=== PATIENT | female | born 1965 | race Caucasian/White ===

== ENCOUNTER 2016-12-06 20:17 | Emergency (ER) | payer OTHER, MEDICAID ==
[~2016-12-06] VITALS: Ht 167.6 cm; Wt 68.0 kg
[~2016-12-06 20:17] MED LIST: DEPA500T3; IBUP-238
[2016-12-06] MEDS ORDERED: LORazepam 2 MG/ML VIAL IM ONE (20:45)
[2016-12-06 21:09] VITALS: BP 132/71; PULSE 78; RESP 15; TEMP 98.7; O2SAT 95
[2016-12-06 21:15] LABS: AUTOMATED NEUTROPHIL # 7.3 TH/MM3 (1.8-7.7); BASOPHIL # 0.1 TH/MM3 (0-0.2); BASOPHIL % 0.5 % (0.0-2.0); EOSINOPHIL # 0.2 TH/MM3 (0-0.4); EOSINOPHIL % 1.9 % (0.0-4.0); HEMATOCRIT 44.6 % (35.0-46.0); HEMO FLAGS DIFF FINAL; LYMPH % 20.2 % (9.0-44.0); LYMPHOCYTE # 2.1 TH/MM3 (1.0-4.8); MEAN CELL VOLUME 82.6 FL (80.0-100.0); MEAN CORPUSCULAR HEMOGLOBIN 28.6 PG (27.0-34.0); MEAN CORPUSCULAR HGB CONC 34.6 % (32.0-36.0); MONO % 5.8 % (0.0-8.0); NEUT % 71.6 % (16.0-70.0); PLATELET COUNT 309 TH/MM3 (150-450); WHITE BLOOD COUNT 10.2 TH/MM3 (4.0-11.0)
[2016-12-06 21:35] LABS: ALKALINE PHOSPHATASE 179 U/L (45-117); TOTAL BILIRUBIN ADULT 0.5 MG/DL (0.2-1.0)
[2016-12-06 21:43] LABS: ALT (GPT) 70 U/L (10-53); ANION GAP 10 MEQ/L (5-15); AST (GOT) 79 U/L (15-37); BICARBONATE 24.3 MEQ/L (21.0-32.0); BLOOD UREA NITROGEN 3 MG/DL (7-18); CHLORIDE 106 MEQ/L (98-107); GLOMERULAR FILTRATION RATE 74 ML/MIN (>89); SODIUM (NA) 140 MEQ/L (136-145)
--- NOTE | 2016-12-06 21:46 | PD ---
HPI Chief Complaint: Psychiatric Symptoms Time Seen by Provider: 20:25 Travel History International Travel<30 days: No Contact w/Intl Traveler<30days: No Traveled to known affect area: No History of Present Illness HPI Patient is a 51-year-old female who is brought in by police under [place] act after she stated she wanted to kill her self. Per [place] act, patient reported to her girlfriend that she took a bunch of her pills. She reports that she only took 2 muscle relaxers because her neck was hurting. She says she is still sick because usually she takes morphine, but she hasn't had any. She is crying, but denies any other medical issues at this time. PFSH Past Medical History Bipolar Disorder: Yes Cardiovascular Problems: Yes (HTN) Diminished Hearing: No Respiratory: Yes Seizures: Yes ?: Not Past Surgical History Hysterectomy: Yes Social History Alcohol Use: No Tobacco Use: Yes (1 DAY) Substance Use: Yes Allergies-Medications (Allergen,Severity, Reaction): Coded Allergies: Aspirin (Verified Allergy, Mild, 07/07/06) Reported Meds & Prescriptions Reported Meds & Active Scripts Active Reported Motrin (Ibuprofen) 800 Mg Tab Depakote Er (Divalproex Sodium) 500 Mg Earl Review of Systems Except as stated in HPI: all other systems reviewed are Neg General / Constitutional: No: Fever, Chills HENT: No: Headaches, Lightheadedness Cardiovascular: No: Chest Pain or Discomfort Respiratory: No: Shortness of Breath Gastrointestinal: No: Nausea, Vomiting, Abdominal Pain Musculoskeletal: Positive: Pain Skin: No Rash, No Change in Pigmentation Neurologic: No: Weakness, Dizziness Physical Exam Narrative GENERAL: Awake and alert, in no acute distress, crying. SKIN: Focused skin assessment warm/dry. No signs of infection. Multiple bruises to her breasts. HEAD: Atraumatic. Normocephalic. EYES: Pupils equal and round. No scleral icterus. ENT: Mucous membranes pink and moist. NECK: Trachea midline. No JVD. CARDIOVASCULAR: Regular rate and rhythm. No murmur appreciated. RESPIRATORY: No accessory muscle use. Clear to auscultation. Breath sounds equal bilaterally. GASTROINTESTINAL: Abdomen soft, non-tender, nondistended. MUSCULOSKELETAL: No obvious deformities. No clubbing. No cyanosis. No edema. NEUROLOGICAL: Awake and alert. No obvious cranial nerve deficits. Motor grossly within normal limits. Normal speech. PSYCHIATRIC: Patient is tearful and very upset. She says she did not take any extra pills. Data Data Last Documented VS Vital Signs Date Time Temp Pulse Resp B/P Pulse Ox O2 Delivery O2 Flow Rate FiO2 12/06/16 21:14 15 15 12/06/16 21:09 98.7 132/71 95 Orders Complete Blood Count With Diff (12/06/16 20:38) Comprehensive Metabolic Panel (12/06/16 20:38) Psych Screen (12/06/16 20:38) Lorazepam Inj (Ativan Inj) (12/06/16 20:45) Drug Screen, Random Urine (12/06/16 20:38) Alcohol (Ethanol) (12/06/16 20:38) Salicylates (Aspirin) (12/06/16 20:38) Tylenol (Acetaminophen) (12/06/16 20:38) Electrocardiogram (12/06/16 ) Troponin I (12/06/16 20:39) Labs Laboratory Tests Test 12/06/16 20:55 White Blood Count 10.2 TH/MM3 Red Blood Count 5.40 MIL/MM3 Hemoglobin 15.4 GM/DL Hematocrit 44.6 % Mean Corpuscular Volume 82.6 FL Mean Corpuscular Hemoglobin 28.6 PG Mean Corpuscular Hemoglobin 34.6 % Concent Red Cell Distribution Width 12.0 % Platelet Count 309 TH/MM3 Mean Platelet Volume 7.3 FL Neutrophils (%) (Auto) 71.6 % Lymphocytes (%) (Auto) 20.2 % Monocytes (%) (Auto) 5.8 % Eosinophils (%) (Auto) 1.9 % Basophils (%) (Auto) 0.5 % Neutrophils # (Auto) 7.3 TH/MM3 Lymphocytes # (Auto) 2.1 TH/MM3 Monocytes # (Auto) 0.6 TH/MM3 Eosinophils # (Auto) 0.2 TH/MM3 Basophils # (Auto) 0.1 TH/MM3 CBC Comment DIFF FINAL Differential Comment Total Bilirubin 0.5 MG/DL Alkaline Phosphatase 179 U/L Total Protein 8.5 GM/DL Salicylates Level 4.0 MG/DL MDM Medical Decision Making Medical Screen Exam Complete: Yes Emergency Medical Condition: Yes Medical Record Reviewed: Yes Differential Diagnosis Suicidal ideation versus intoxication versus psychosis Narrative Course Patient is a 51-year-old female comes in under a [place] act after she threatened suicide. She has no medical complaints. Police brought her pill bottles with her that still have most of the medications in them. She is not exhibiting signs of overdose on anything. She is very anxious and tearful. Given 1 mg of Ativan to help her relax. Labs sent show no acute abnormalities. She will be medically cleared for psychiatric evaluation. Disposition per psychiatry. Diagnosis Primary Impression: Depression with suicidal ideation Condition: Cherrie Caballero MD Dec 06, 2016 21:46
[2016-12-06 21:57] LABS: ACETAMINOPHEN LESS THAN 2.0 MCG/ML (10.0-30.0); ALCOHOL LESS THAN 3 MG/DL (0-5)
[2016-12-06] MEDS ORDERED: BACL10TA PO (23:26)
[2016-12-06] MEDS ORDERED: AMLO5TAB2 PO (23:26)
[2016-12-06] MEDS ORDERED: TRAZ50TA12 PO (23:26)
[2016-12-06] MEDS ORDERED: LAMO25 PO (23:26)
[2016-12-06] MEDS ORDERED: ARIP1TAB13 PO (23:26)
[2016-12-07 01:00] VITALS: BP 135/82; PULSE 94; RESP 20; TEMP 98.4; O2SAT 97
[2016-12-07 06:05] VITALS: BP 118/73; PULSE 77; RESP 20; TEMP 97.7; O2SAT 96
[2016-12-07 10:04] VITALS: BP 104/59; PULSE 78; RESP 18; O2SAT 95
[2016-12-07 14:18] VITALS: BP 132/76; PULSE 82; RESP 17; O2SAT 96
[2016-12-07] MEDS ORDERED: lamoTRIgine 25 MG TAB PO ONE (15:00)
--- NOTE | 2016-12-07 15:33 | PD ---
History of Present Illness Chief Complaint: Psychiatric Symptoms Travel History International Travel<30 Days: No Contact w/Intl Traveler<30days: No Known affected area: No Legal Status Legal Status: D[place] Act [place] Act Signed By: David Garcia History of Present Illness: 51-year-old female who got into an argument with her new spouse and made threats to kill herself. At this time the patient is calm, pleasant and cooperative. She reiterates she did not overdose on pills but took to muscle relaxers. She also reports suffering from chronic pain and from bipolar disorder. She would like her bipolar medicines at this time. She denies any suicidal or homicidal ideation, plan or intent. She is cognitively intact and has no psychotic symptoms. She is verbally jermaine for safety. She feels her anger got the best of her and this is the reason she made threats to harm herself. Furthermore, at this time, this physician does not find any significant objective clinical evidence of bipolar disorder or a mood disorder. PFSH Past Medical History Bipolar Disorder: Yes Cardiovascular Problems: Yes (HTN) Diminished Hearing: No Respiratory: Yes Seizures: Yes ?: Not Past Surgical History Hysterectomy: Yes Psychiatric History Psychiatric History Hx Psychiatric Treatment: YES [facility]. This physician cannot discern significant clinical evidence of a mood disorder at this time as the patient is calm, pleasant and cooperative. History of Inpatient Treatment: Yes Guns or firearms in home: No Social History Hx Alcohol Use: No Hx Tobacco Use: Yes (1 PK DAY) Hx Substance Use: Yes Substance Use Type: Cocaine Hx of Substance Use Treatment: No Allergies-Medications (Allergen,Severity, Reaction): Coded Allergies: Aspirin (Verified Allergy, Mild, 07/07/06) Reported Meds & Prescriptions Reported Meds & Active Scripts Active Reported Lamictal (Lamotrigine) 25 Mg Tab 50 Mg PO BID Aripiprazole 15 Mg Tab 15 Mg PO DAILY Baclofen 10 Mg Tab 5 Mg PO BID PRN Trazodone (Trazodone HCl) 50 Mg Tab 50 Mg PO HS Amlodipine (Amlodipine Besylate) 5 Mg Tab 5 Mg PO DAILY Review of Systems Except as stated in HPI: all other systems reviewed are Neg Exam Alert: Yes [place]: Person, Place, Date, Situation Mood: Calm Affect: Appropriate Speech: Clear Eye Contact: Normal Memory Intact: Immediate, Recent, Remote Delusions: No Insight/Judgement Adequate MDM Medical Decision Making Medical Record Reviewed: Yes Assessment/Plan This physician spoke with the patient's nurse about her current condition and recent behavior. Patient is verbally jermaine for safety at this time and she is competent to do so. She is willing to receive treatment on an outpatient basis and this physician finds least restrictive alternative applies. The patient is therefore being sent home with her property, which includes her own medications. Orders Complete Blood Count With Diff (12/06/16 20:38) Comprehensive Metabolic Panel (12/06/16 20:38) Psych Screen (12/06/16 20:38) Lorazepam Inj (Ativan Inj) (12/06/16 20:45) Drug Screen, Random Urine (12/06/16 20:38) Alcohol (Ethanol) (12/06/16 20:38) Salicylates (Aspirin) (12/06/16 20:38) Tylenol (Acetaminophen) (12/06/16 20:38) Electrocardiogram (12/06/16 ) Troponin I (12/06/16 20:39) Diet Regular Basic (12/07/16 Breakfast) Diet Regular Basic (12/07/16 Lunch) Lamotrigine (Lamictal) (12/07/16 15:00) Diet Regular Basic (12/07/16 Dinner) Results Vital Signs Date Time Temp Pulse Resp B/P Pulse Ox O2 Delivery O2 Flow Rate FiO2 12/07/16 14:18 82 17 132/76 96 Room Air 12/07/16 10:04 78 18 104/59 95 Room Air 12/07/16 06:05 97.7 77 20 118/73 96 12/07/16 01:00 98.4 94 20 135/82 97 12/06/16 21:14 15 15 12/06/16 21:09 98.7 78 15 132/71 95 Laboratory Tests Test 12/06/16 12/07/16 20:55 12:52 White Blood Count 10.2 Red Blood Count 5.40 Hemoglobin 15.4 Hematocrit 44.6 Mean Corpuscular Volume 82.6 Mean Corpuscular Hemoglobin 28.6 Mean Corpuscular Hemoglobin 34.6 Concent Red Cell Distribution Width 12.0 Platelet Count 309 Mean Platelet Volume 7.3 Neutrophils (%) (Auto) 71.6 Lymphocytes (%) (Auto) 20.2 Monocytes (%) (Auto) 5.8 Eosinophils (%) (Auto) 1.9 Basophils (%) (Auto) 0.5 Neutrophils # (Auto) 7.3 Lymphocytes # (Auto) 2.1 Monocytes # (Auto) 0.6 Eosinophils # (Auto) 0.2 Basophils # (Auto) 0.1 CBC Comment DIFF FINAL Differential Comment Sodium Level 140 Potassium Level 4.0 Chloride Level 106 Carbon Dioxide Level 24.3 Anion Gap 10 Blood Urea Nitrogen 3 Creatinine 0.82 Estimat Glomerular Filtration 74 Rate Random Glucose 103 Calcium Level 9.4 Total Bilirubin 0.5 Aspartate Amino Transf 79 (AST/SGOT) Alanine Aminotransferase 70 (ALT/SGPT) Alkaline Phosphatase 179 Troponin I LESS THAN 0.02 Total Protein 8.5 Albumin 3.7 Salicylates Level 4.0 Acetaminophen Level LESS THAN 2.0 Ethyl Alcohol Level LESS THAN 3 Urine Opiates Screen NEG Urine Barbiturates Screen NEG Urine Amphetamines Screen POS Urine Benzodiazepines Screen NEG Urine Cocaine Screen NEG Urine Cannabinoids Screen NEG Diagnosis Primary Impression: Adjustment disorder with mixed disturbance of emotions and con... Departure Forms: Tests/Procedures Patient Instructions: General Instructions, Mood Disorders (ED), Medical Clearance for Psychiatric Care (ED) Disposition: 01 DISCHARGE HOME Condition: Stable Abhishek Crooks MD Dec 07, 2016 15:33
[2016-12-07 15:41] VITALS: BP 132/76; TEMP 98
--- NOTE | 2016-12-07 16:15 | EKG ---
Date Performed: 12/06/2016 Time Performed: 22:02:53 PTAGE: 51 years EKG: Sinus rhythm WITH SINUS ARRHYTHMIA NORMAL ECG NO PREVIOUS TRACING DOCTOR: Jesus Whitman Interpretating Date/Time 12/07/2016 16:14:14
== END 2016-12-07 15:57 | disposition home or self-care (01) ==
LOC: NEPD 20:17 → NEPJ 12-07 15:57
DX: F43.20 Adjustment disorder, unspecified (principal); I10 Essential (primary) hypertension; F17.210 Nicotine dependence, cigarettes, uncomplicated
CPT/HCPCS: 80053; 80307; 84484; 85025; 93005; 96372; 99285; J2060